=== PATIENT | male | born 1965 | race Caucasian/White ===

== ENCOUNTER 2018-10-08 09:28 | Emergency (ER) | payer OTHER ==
[2018-10-08 10:11] LABS: Absolute Lymphocytes (CBC) 2.3 K/uL (0.7-4.9); Absolute Monocytes 0.5 K/uL (0.1-1.3); Absolute Neutrophil 4.2 K/uL (1.8-8.0); Basophils % 1.1 % (0-1.3); Eosinophils % 3.3 % (0-4.4); Hematocrit 48.6 % (39.6-49.0); Lymphocytes % 31.2 % (15.3-44.8); MPV 9.9 fL (7.6-11.3); Monocytes % 6.7 % (3.3-12.3); RBC Red Blood Cell Count 5.46 M/uL (4.33-5.43)
[2018-10-08] MEDS ORDERED: ONDANSETRON 4 MG/2 ML VIAL ONE (10:17)
[2018-10-08] MEDS ORDERED: MEPERIDINE HCL 25 MG/0.5 ML ONE (10:17)
[2018-10-08 10:30] LABS: Albumin 4.3 g/dL (3.4-5.0); Bilirubin Direct 0.2 mg/dL (0-0.2); Bilirubin Total 1.5 mg/dL (0.2-1.0); Potassium 3.9 mmol/L (3.5-5.1); Protein, Total 8.3 g/dL (6.4-8.2)
--- NOTE | 2018-10-08 11:06 | RAD REPORT ---
EXAM DESCRIPTION: CTAbdomen Pelvis W Contrast - 10/08/2018 10:55 am CLINICAL HISTORY: Abdominal pain. iv only;Abd pain;Flank pain COMPARISON: No comparisons TECHNIQUE: Biphasic CT imaging of the abdomen and pelvis was performed with 100 ml non-ionic IV cont rast. All CT scans are performed using dose optimization technique as appropriate and may include automated exposure control or mA/KV adjustment according to patient size. FINDINGS: The lung bases are clear. The liver, spleen, pancreas, adrenal glands and right kidney are within normal limits. 5 mm calculus is present inferior left kidney. Cholelithiasis. No bowel obstruction, free air, free fluid or abscess. The appendix is normal. No evidence of signi ficant lymphadenopathy. No suspicious bony findings. IMPRESSION: Cholelithiasis. 5 mm left renal calculus without hydronephrosis.
--- NOTE | 2018-10-08 11:34 | ER ---
Nurse's Notes [facility] Name: Ruslan López Age: 53 yrs Sex: Male : 1965 Arrival Date: 10/08/2018 Time: 09:35 Bed 18 Private MD: None, None Diagnosis: Gastroenteritis;Muscle spasm of back Presentation: 10/08 09:41 Presenting complaint: Patient states: for weeks i have this pain on my L upper abdomen hj area that goes all the way to my back, papi been taking advil and its helps, lately it doesn't; pain is 8/10 reports fever; pain radiates to the L lower hip too; denies trauma to the area; hx of broken ribs to the area;. Transition of care: patient was not received from another setting of care. Onset of symptoms was October 08, 2018. Risk Assessment: Do you want to hurt yourself or someone else? Patient reports no desire to harm self or others. Initial Sepsis Screen: Does the patient meet any 2 criteria? No. Patient's initial sepsis screen is negative. Does the patient have a suspected source of infection? No. Patient's initial sepsis screen is negative. Care prior to arrival: None. 09:41 Method Of Arrival: Ambulatory 09:41 Acuity: YOSI 3 hj Triage Assessment: 09:43 General: Appears in no apparent distress. uncomfortable, Behavior is calm, cooperative, hj appropriate for age. Pain: Complains of pain in abdomen. Musculoskeletal: Circulation, motion, and sensation intact. Capillary refill < 3 seconds, Range of motion:. Historical: - Allergies: 09:43 No Known Allergies; hj - Home Meds: :43 None [Active]; hj - PMHx: :43 None; hj - PSHx: 09:43 None; hj - Immunization history:: Adult Immunizations not up to date. - Social history:: Smoking status: Patient uses tobacco products, Patient/guardian denies using alcohol. - Ebola Screening: : Patient negative for fever greater than or equal to 101.5 degrees Fahrenheit, and additional compatible Ebola Virus Disease symptoms Patient denies exposure to infectious person Patient denies travel to an Ebola-affected area in the 21 days before illness onset. Screenin:43 Abuse screen: Denies threats or abuse. Denies injuries from another. Nutritional hj screening: No deficits noted. Tuberculosis screening: No symptoms or risk factors identified. Fall Risk None identified. Vital Signs: 09:40 BP 118 / 75; Pulse 87; Resp 18; Temp 98.1(O); Pulse Ox 96% on R/A; Weight 102.06 kg; hj Height 6 ft. 3 in. (190.50 cm); Pain 8/10; 11:42 BP 120 / 70; Pulse 85; Resp 18; Pulse Ox 100% on R/A; hj 09:40 Body Mass Index 28.12 (102.06 kg, 190.50 cm) hj ED Course: 09:35 Patient arrived in ED. mr 09:35 None, None is Private Physician. mr 09:38 Ky Tobin PA is PHCP. jr8 09:38 Chilango Knutson MD is Attending Physician. jr8 09:40 Arturo Elizabeth, [place] is Primary Nurse. hj 09:42 Triage completed. hj 09:43 Arm band placed on right wrist. hj 09:43 Patient has correct armband on for positive identification. Placed in gown. Bed in low hj position. Call light in reach. Side rails up X 1. 10:04 Initial lab(s) drawn, by ia, sent to lab. Inserted saline lock: 22 gauge in right hj antecubital area, using aseptic technique. forearm, using aseptic technique. Blood collected. 10:55 CT completed. Patient tolerated procedure well. Patient moved to CT via wheelchair. Patient moved back from CT. 10:56 CT Abd/Pelvis - W/Contrast In Process Unspecified. EDMS 11:42 No provider procedures requiring assistance completed. IV discontinued, intact, hj bleeding controlled, No redness/swelling at site. Pressure dressing applied. Administered Medications: 10:04 Drug: Demerol 25 mg Route: IVP; Site: right antecubital; hj 11:35 Follow up: Response: No adverse reaction; Pain is decreased hj 10:04 Drug: Zofran 4 mg Route: IVP; Site: right antecubital; hj 11:35 Follow up: Response: No adverse reaction; Nausea is decreased hj Outcome: 11:33 Discharge ordered by . jr8 11:42 Discharged to home ambulatory. hj 11:42 Condition: stable 11:42 Discharge instructions given to patient, Instructed on discharge instructions, follow up and referral plans. medication usage, Demonstrated understanding of instructions, follow-up care, medications, Prescriptions given X 4. 11:48 Patient left the ED. hj Signatures: Dispatcher [employer] EDMO Tex Cammy mr Aakash, Ky Crump PA PA jr8 Arturo Elizabeth RN RN hj Corrections: (The following items were deleted from the chart) 11:42 09:40 Pulse 87bpm; Resp 18bpm; Pulse Ox 96% RA; Temp 98.1F Oral; 102.06 kg; Height 6 hj ft. 3 in.; BMI: 28.1; Pain 8/10; hj
--- NOTE | 2018-10-08 11:35 | EDPHYS ---
Physician Documentation [facility] Name: Ruslan López Age: 53 yrs Sex: Male : 1965 Arrival Date: 10/08/2018 Time: 09:35 Bed 18 Private MD: None, None ED Physician Chilango Knutson HPI: 10/08 10:57 This 53 yrs old Male presents to ER via Ambulatory with complaints of Back jr8 Pain. 10:57 The patient presents with pain that is acute. The symptoms are located in the left low jr8 back and left mid back. Onset: The symptoms/episode began/occurred gradually, 2 week(s) ago, and became worse and became persistent. The pain does not radiate. Associated signs and symptoms: Pertinent positives: nausea, vomiting. Modifying factors: The patient symptoms are alleviated by nothing, the patient symptoms are aggravated by any movement. Severity of symptoms: At their worst the symptoms were moderate, in the emergency department the symptoms are unchanged. The patient has not experienced similar symptoms in the past. The patient has not recently seen a physician. Historical: - Allergies: 09:43 No Known Allergies; hj - Home Meds: 09:43 None [Active]; hj - PMHx: 09:43 None; hj - PSHx: 09:43 None; hj - Immunization history:: Adult Immunizations not up to date. - Social history:: Smoking status: Patient uses tobacco products, Patient/guardian denies using alcohol. - Ebola Screening: : Patient negative for fever greater than or equal to 101.5 degrees Fahrenheit, and additional compatible Ebola Virus Disease symptoms Patient denies exposure to infectious person Patient denies travel to an Ebola-affected area in the 21 days before illness onset. ROS: 11:17 Eyes: Negative for injury, pain, redness, and discharge, ENT: Negative for injury, jr8 pain, and discharge, Neck: Negative for injury, pain, and swelling, Cardiovascular: Negative for chest pain, palpitations, and edema, Respiratory: Negative for shortness of breath, cough, wheezing, and pleuritic chest pain, Abdomen/GI: Negative for abdominal pain and constipation. Positive for n/v/d MS/Extremity: Negative for injury and deformity, Skin: Negative for injury, rash, and discoloration, Neuro: Negative for headache, weakness, numbness, tingling, and seizure. 11:17 Back: Positive for pain at rest, pain with movement, of the left low back and left mid back. Exam: 11:18 Eyes: Pupils equal round and reactive to light, extra-ocular motions intact. Lids and jr8 lashes normal. Conjunctiva and sclera are non-icteric and not injected. Cornea within normal limits. Periorbital areas with no swelling, redness, or edema. ENT: Nares patent. No nasal discharge, no septal abnormalities noted. Tympanic membranes are normal and external auditory canals are clear. Oropharynx with no redness, swelling, or masses, exudates, or evidence of obstruction, uvula midline. Mucous membranes moist. Neck: Trachea midline, no thyromegaly or masses palpated, and no cervical lymphadenopathy. Supple, full range of motion without nuchal rigidity, or vertebral point tenderness. No Meningismus. Cardiovascular: Regular rate and rhythm with a normal S1 and S2. No gallops, murmurs, or rubs. Normal PMI, no JVD. No pulse deficits. Respiratory: Lungs have equal breath sounds bilaterally, clear to auscultation and percussion. No rales, rhonchi or wheezes noted. No increased work of breathing, no retractions or nasal flaring. Abdomen/GI: Soft, non-tender, with normal bowel sounds. No distension or tympany. No guarding or rebound. No evidence of tenderness throughout. Skin: Warm, dry with normal turgor. Normal color with no rashes, no lesions, and no evidence of cellulitis. MS/ Extremity: Pulses equal, no cyanosis. Neurovascular intact. Full, normal range of motion. Neuro: Awake and alert, GCS 15, oriented to person, place, time, and situation. Cranial nerves II-XII grossly intact. Motor strength 5/5 in all extremities. Sensory grossly intact. Cerebellar exam normal. Normal gait. 11:18 Back: pain, that is moderate, of the left low back and left mid back, ROM is painful, normal spinal alignment noted, CVA tenderness, is absent, vertebral tenderness, is not appreciated, muscle spasm, is appreciated in the left low back and left mid back. Vital Signs: 09:40 BP 118 / 75; Pulse 87; Resp 18; Temp 98.1(O); Pulse Ox 96% on R/A; Weight 102.06 kg; hj Height 6 ft. 3 in. (190.50 cm); Pain 8/10; 11:42 BP 120 / 70; Pulse 85; Resp 18; Pulse Ox 100% on R/A; hj 09:40 Body Mass Index 28.12 (102.06 kg, 190.50 cm) hj MDM: 09:38 Patient medically screened. 11:26 Data reviewed: vital signs, nurses notes, lab test result(s), radiologic studies, CT jr8 scan, and as a result, I will discharge patient. Data interpreted: Pulse oximetry: on room air is 96 %. Interpretation: normal. Counseling: I had a detailed discussion with the patient and/or guardian regarding: the historical points, exam findings, and any diagnostic results supporting the discharge/admit diagnosis, radiology results, the need for outpatient follow up, a family practitioner, to return to the emergency department if symptoms worsen or persist or if there are any questions or concerns that arise at home. 10/08 09:58 Order name: Basic Metabolic Panel; Complete Time: 10:38 10/08 09:58 Order name: CBC with Diff; Complete Time: 10:38 10/08 09:58 Order name: Creatinine for Radiology; Complete Time: 10:38 10/08 09:58 Order name: Hepatic Function; Complete Time: 10:38 10/08 09:58 Order name: Lipase; Complete Time: 10:38 10/08 10:40 Order name: CT Abd/Pelvis - W/Contrast; Complete Time: 11:14 10/08 09:58 Order name: IV Saline Lock; Complete Time: 10:04 10/08 09:58 Order name: Labs collected and sent; Complete Time: 10:04 Administered Medications: 10:04 Drug: Demerol 25 mg Route: IVP; Site: right antecubital; hj 11:35 Follow up: Response: No adverse reaction; Pain is decreased hj 10:04 Drug: Zofran 4 mg Route: IVP; Site: right antecubital; hj 11:35 Follow up: Response: No adverse reaction; Nausea is decreased Disposition: 11:50 Co-signature as Attending Physician, Chilango Knutson MD. rn Disposition: 10/08/18 11:33 Discharged to Home. Impression: Gastroenteritis, Muscle spasm of back. - Condition is Stable. - Discharge Instructions: Muscle Cramps and Spasms, Back Exercises, Fynm-sz-Lift, Heat Therapy. - Prescriptions for Ibuprofen 800 mg Oral Tablet - take 1 tablet by ORAL route every 12 hours As needed take with food; 20 tablet. Ultracet 37.5- 325 mg Oral Tablet - take 1 tablet by ORAL route every 6 hours - for up to 5 days; do not exceed 8 tablets per day.; 30 tablet. Zanaflex 4 mg Oral Tablet - take 1 tablet by ORAL route every 8 hours As needed; 20 tablet. Zofran 4 mg Oral Tablet - take 1 tablet by ORAL route every 12 hours As needed; 20 tablet. - Medication Reconciliation Form, Thank You Letter, Antibiotic Education, Prescription Opioid Use, Work release form form. - Follow up: Private Physician; When: 5 - 6 days; Reason: Recheck today's complaints, Continuance of care, Re-evaluation by your physician. - Problem is new. - Symptoms have improved. Signatures: Dispatcher [employer] EDMS Chilango Knutson MD MD rn Roszak, Josh, PA PA jr8 Arturo Elizabeth RN RN Corrections: (The following items were deleted from the chart) 11:36 09:59 Urine Dipstick-Ancillary ordered. jr8 11:48 11:33 10/08/2018 11:33 Discharged to Home. Impression: Gastroenteritis; Muscle spasm of hj back. Condition is Stable. Forms are Medication Reconciliation Form, Thank You Letter, Antibiotic Education, Prescription Opioid Use. Follow up: Private Physician; When: 5 - 6 days; Reason: Recheck today's complaints, Continuance of care, Re-evaluation by your physician. Problem is new. Symptoms have improved. jr8
== END 2018-10-08 11:48 | disposition home or self-care (01) ==
LOC: ER 09:28
DX: M62.830 Muscle spasm of back (principal); K52.9 Noninfective gastroenteritis and colitis, unspecified; Z72.0 Tobacco use
CPT/HCPCS: 36415; 74177; 80048; 80076; 83690; 85025; 96374; 96375; 99284; J2175; J2405; Q9967